=== PATIENT | male | born 1940 | race Caucasian/White ===

== ENCOUNTER 2020-03-18 06:02 | Inpatient (IN) ==
[2020-03-13 18:01] LABS: Appearance,Urine CLEAR; Bilirubin,Urine NEG (NEG); Color,Urine YELLOW; Culture Indicated,Urine NO; Glucose,Urine (UA) NEGATIVE (NEG); Ketones,Urine NEG (NEG); Leukocyte Esterase,Urine NEG /uL (NEG); Nitrate,Urine NEG (NEG); Protein,Urine NEG (NEG); Specific Gravity,Urine 1.024 (1.000-1.035); Urine Blood NEG mg/dL (<0.03); Urobilinogen,Urine NEG (NEG)
[2020-03-13 19:44] LABS: Basophils # (Auto) 0.04 K/mcL (0.00-0.30); Basophils % (Auto) 0.8 % (0.0-2.0); Eosinophils # (Auto) 0.18 K/mcL (0.00-0.70); Eosinophils % (Auto) 3.5 % (0.0-7.0); Granulocytes % (Auto) 39.9 % (38.0-78.0); Hematocrit 36.6 % (40.1-51.0); Hemoglobin 12.3 g/dL (13.7-17.5); Lymphocytes % (Auto) 44.6 % (15.5-49.0); Mean Cell Volume 96.3 fL (80.0-100.0); Mean Corpuscular HGB Conc 33.6 g/dL (31.0-36.0); Mean Platelet Volume 11.7 fL (7.4-10.4); Monocytes # (Auto) 0.58 K/mcL (0.10-0.90); Monocytes % (Auto) 11.2 % (1.0-12.0); Platelet Count 151 K/mcL (140-440); Red Cell Distribution Width 12.1 % (11.5-14.5); WBC 5.2 K/mcL (4.50-11.00)
[2020-03-13 20:02] LABS: Blood Urea Nitrogen 26 mg/dl (8-23); Calcium 9.6 mg/dl (8.6-10.4); Carbon Dioxide 26 mmol/L (22-30); Chloride 101 mmol/L (96-108); Glomerular Filtration Rate 57; Glucose 87 mg/dL (70-105)
[~2020-03-18 06:02] MED LIST: ACETAMINOPHEN 500 MG TABLET PO SCH; CELECOXIB 200 MG CAPSULE PO SCH; IPRATROPIUM/ALBUTEROL 3 ML AMPUL.NEB NEB PRN; PREGABALIN 75 MG CAPSULE PO SCH; SCOPOLAMINE 1 PATCH PATCH TOPICAL PRN; ceFAZolin 2 GM in DEXTROSE 5% IN WATER 50 ML IV SCH; oxyCODONE 10 MG TAB.ER.12H PO SCH
[2020-03-18] MEDS ORDERED: GENTAMICIN SULFATE 800 MG/20 ML VIAL IR ONE (08:33)
[2020-03-18] MEDS ORDERED: ONDANSETRON 4 MG/2 ML VIAL IV ONE (09:25)
[2020-03-18] MEDS ORDERED: DEXAMETHASONE 10 MG/ML VIAL IV ONE (09:25)
[2020-03-18] MEDS ORDERED: HYDROmorphone 1 MG/ML SYRINGE IV ONE (09:25)
[2020-03-18] MEDS ORDERED: ESMOLOL 100 MG/10 ML VIAL IV ONE (09:25)
[2020-03-18] MEDS ORDERED: GLYCOPYRROLATE 0.2 MG/ML VIAL IV ONE (09:25)
[2020-03-18] MEDS ORDERED: ROPIVACAINE HCL/PF 30 ML VIAL IJ ONE (09:25)
[2020-03-18] MEDS ORDERED: LIDOCAINE HCL/PF 100 MG/5 ML SYRINGE IV ONE (09:25)
[2020-03-18] MEDS ORDERED: TRANEXAMIC ACID 1,000 MG/10 ML VIAL IV ONE (09:25)
[2020-03-18] MEDS ORDERED: PROPOFOL 200 MG/20 ML VIAL IV ONE (09:25)
[2020-03-18] MEDS ORDERED: MIDAZOLAM 2 MG/2 ML VIAL IV ONE (09:25)
[2020-03-18] MEDS ORDERED: KETAMINE 100 MG/ML ML IV ONE (09:25)
[2020-03-18] MEDS ORDERED: IPRATROPIUM/ALBUTEROL 3 ML AMPUL.NEB NEB PRN (10:35)
[2020-03-18] MEDS ORDERED: fentaNYL 100 MCG/2 ML VIAL IV PRN (10:35)
[2020-03-18] MEDS ORDERED: ONDANSETRON 4 MG/2 ML VIAL IV PRN (10:35)
[2020-03-18] MEDS ORDERED: ACETAMINOPHEN 325 MG TABLET PO PRN (10:37)
[2020-03-18] MEDS ORDERED: TRANEXAMIC ACID 1,000 MG/10 ML VIAL IV SCH (10:37)
[2020-03-18] MEDS ORDERED: BISACODYL 10 MG SUPP.RECT PR PRN (10:37)
[2020-03-18] MEDS ORDERED: POLYETHYLENE GLYCOL 3350 17 GM PACKET PO PRN (10:37)
[2020-03-18] MEDS ORDERED: BENZOCAINE/MENTHOL 1 LOZENGE PO PRN (10:37)
[2020-03-18] MEDS ORDERED: MAGNESIUM HYDROXIDE 30 ML ORAL.SUSP PO PRN (10:37)
[2020-03-18] MEDS ORDERED: HYDROmorphone 1 MG/ML SYRINGE IV PRN (10:37)
[2020-03-18] MEDS ORDERED: KETOROLAC 15 MG/ML VIAL IV PRN (10:37)
[2020-03-18] MEDS ORDERED: FLEETS ADULT ENEMA PR PRN (10:37)
--- NOTE | 2020-03-18 10:37 | Brief Operative Note ---
Date of procedure: 03/18/20 Pre-op diagnosis: Right shoulder rca Post-op diagnosis: same Procedure: Right reverse tsa and bicep tenodesis Grafts/Implants: Yes Anesthesia: GETA Complications: none Surgeon: Roberto Nolasco Cake Tester: Richard Jaffe Estimated blood loss (cc): 120 Specimens Removed/Pathology: none sent Condition: stable Disposition: PACU
[2020-03-18] MEDS ORDERED: LACTATED RINGERS 1,000 ML IV SCH (10:45)
--- NOTE | 2020-03-18 11:00 | Discharge Summary ---
Ortho Discharge - TSA - Patient Instructions Diet: Regular Diet Activity: activity as tolerated, weight bearing as tolerated Total Shoulder Protocol: Leave immobilizer in place except for bathing and ROM. Abduction pillow. Continue to wear sling until seen by physician. Codman Pendulum : These exercises use momentum produced by your body to move your shoulder joint. Bend your knees and shift your weight to your front leg, then back, allowing your arm to swing in the same directions. Using the same technique, alternately shift your weight between your right and left legs, allowing your arm to swing from side to side. These exercises are also performed in counterclockwise and clockwise circular motions. Typically these exercises are performed several times per day, for a set number repetitions or minutes, such as 20 times in a row or 5 minutes at a time. Dressing Care: May shower in 2 days - Follow Up Plan Disposition: Home, Self-Care Prognosis: Good Rehab Potential: Good I certify that the patient requires SNF services: No Overall status at discharge: patient is progressing back to baseline - Orders For Discharge Prescriptions: Docusate Sodium [Colace] 100 mg PO BID #60 cap Transmission Status: Pending to [facility][id number] oxyCODONE/APAP [Percocet 5-325 mg] 1 - 2 tab PO Q4HP PRN #75 tab PRN Reason: Pain Level 3-6 Prescription Printed
--- NOTE | 2020-03-18 11:11 | Operative Note ---
DATE OF OPERATION: 03/18/2020 PREOPERATIVE DIAGNOSES: Right shoulder rotator cuff arthropathy with severe degenerative arthritis. POSTOPERATIVE DIAGNOSES: Right shoulder rotator cuff arthropathy with severe degenerative arthritis. PROCEDURE: Right reverse total shoulder. SURGEON: Roberto Nolasco M.D. TRANSIT SURVEY WORKER: Richard Jaffe PA-C. The PA's assistance was required for the safe and efficient completion of the entire case. This provider's expertise and technical skill were required throughout the case. The PA assisted with preoperative coordination, intraoperative retraction, wound closure, dressing and splint application, as well as postoperative documentation and care coordination. ANESTHESIA: General LMA anesthesia. COMPLICATIONS: None. ESTIMATED BLOOD LOSS: About 120 mL. INDICATIONS FOR SURGERY: The patient had prior rotator cuff repair which has failed. He has had prior therapy. He has had anti-inflammatories, Tylenol, and years of pain. This has gone on to get to the point where he cannot raise his hand over his head, cannot reach for things, and activities of daily living are severely handicapped where he cannot reach for things at eye level. It awakens him at night. The pain is rated 8/10 and has failed all conservative care. DESCRIPTION OF PROCEDURE: The patient was brought to the operating room and put to sleep with general LMA anesthesia. Once asleep, the patient had the right arm sterilely prepped and draped in the usual sterile fashion. The timeout performed confirmed the operative site by initials, consent form, and x-rays. A deltopectoral approach was performed through the [place], confirming that he did receive tranexamic acid and preoperative antibiotics. We exposed the joint through the deltopectoral interval. We released the subscap, identified the remnants of the biceps tendon which was then repaired to the pec major with #2 FiberWire. After the biceps had been repaired, we subluxed the humeral head anteriorly, releasing the inferior capsule, protecting the axillary nerve and released the spurs inferiorly. Once this was done, we made the neck cut just below the articular cartilage at 20 degrees of retroversion. Once this was done, we were able to then sublux the head posteriorly. We released the labrum and remnants of the biceps with a gator. We placed a central screw hole and reamed up to the size of 40. Once the glenoid had been reamed, we then removed any spurs and placed a screw hole for the metaglene, measuring 36 mm centrally. It gave excellent support and fixation, and the metaglene sat very flush with good bleeding bone. At this point, we then placed peripheral screws measuring 36 mm, 32 mm and 28 mm. These all locked into place. We placed a 40 mm glenosphere with 2 mm of offset, 2 mm of the eccentricity. We irrigated thoroughly and we then prepared the humeral head, reaming up to the size 12. We trialed the size 12 stem with a standard poly. This seemed to fit very nicely. We irrigated thoroughly and cemented into place the size 12 stem on the distal third of the stem for immediate fixation given the softness of the bone. Proximally we placed a standard-thickness poly. This was reduced. This seemed to give the patient excellent stability and full range of motion. The patient tolerated this well without complication. RBH:claudette Job ID: [id number] Doc ID: [id number] Roberto Nolasco MD
[2020-03-18] MEDS: LACTATED RINGERS 1,000 ML IV SCH ×2 (12:07→19:06)
[2020-03-18] MEDS: 0.9 % SODIUM CHLORIDE 10 ML SYRINGE IV SCH ×2 (12:44→20:12)
--- NOTE | 2020-03-18 13:09 | XRay Report ---
CLINICAL INFORMATION: Post-OP Total Shoulder COMPARISON: None. FINDINGS: Total shoulder prostheses is anatomically aligned. Mild acromioclavicular degeneration noted. No osseous abnormality. Soft tissue swelling seen as expected. IMPRESSION: Total shoulder prosthesis anatomically aligned Interpreted and Authenticated by: Ruben Whaley 03/18/20
[2020-03-18] MEDS: ONDANSETRON 4 MG/2 ML VIAL IV PRN ×2 (14:25→19:07)
[2020-03-18] MEDS: CARVEDILOL 3.125 MG TABLET PO SCH ×2 (15:13→20:12)
[2020-03-18] MEDS ORDERED: FINASTERIDE 5 MG TABLET PO ONE (16:29)
[2020-03-18] MEDS: ceFAZolin 1 GM VIAL IV SCH (16:44)
[2020-03-18] MEDS: MELATONIN 3 MG TABLET PO SCH (20:10)
[2020-03-18] MEDS: ATORVASTATIN 40 MG TABLET PO SCH (20:10)
[2020-03-18] MEDS: DOCUSATE SODIUM 100 MG CAPSULE PO SCH (20:10)
[2020-03-18] MEDS: SENNOSIDES 1 TABLET PO SCH (20:11)
[2020-03-18] MEDS: TERAZOSIN 1 MG CAPSULE PO SCH (20:11)
[2020-03-18] MEDS ORDERED: TEMAZEPAM 15 MG CAPSULE PO PRN (21:00)
[2020-03-19] MEDS: ceFAZolin 1 GM VIAL IV SCH (00:27)
[2020-03-19] MEDS: ONDANSETRON 4 MG/2 ML VIAL IV PRN ×3 (01:28→17:09)
[2020-03-19] MEDS: LACTATED RINGERS 1,000 ML IV SCH (05:20)
[2020-03-19] MEDS: 0.9 % SODIUM CHLORIDE 10 ML SYRINGE IV SCH ×4 (05:20→21:54)
[2020-03-19] MEDS: oxyCODONE/APAP 5/325MG TABLET PO PRN ×4 (06:57→20:17)
--- NOTE | 2020-03-19 07:26 | Orthopedic Progress Note ---
Subjective Patient information: Note initiated : 03/19/20 at 7:24 am Service Date, if different from initiated Date: [] Patient: Catalino Calhoun 79 y/o M admitted on 03/18/20 for Right Reverse Total Shoulder Arthroplasty with. Chief Complaint: [Pt is stable this morning on post operative day 1 without any significant concerns or complaints. Patients vital signs have remained stable except for very low pulse 30's-50's and some urinary retention. Patients dressing is dry and is grossly intact from a neurovascular and motor standpoint. Patients 10 point ROS is otherwise negative. ] Objective Vital signs: Vital Signs Temp Pulse Resp BP Pulse Ox 03/19/20 06:38 97.8 F 35 L 14 143/52 95 03/19/20 03:01 98.0 F 52 L 18 136/57 94 03/18/20 23:16 97.8 F 65 20 129/71 98 03/18/20 19:04 97.4 F 69 22 150/83 92 03/18/20 16:00 96.2 F L 38 L 18 176/86 97 03/18/20 13:55 34 L 18 174/72 97 03/18/20 13:25 52 L 18 152/91 96 03/18/20 12:55 58 L 18 166/83 97 03/18/20 12:39 59 L 160/85 96 03/18/20 12:24 60 173/88 95 03/18/20 12:09 63 170/87 95 03/18/20 11:55 66 16 180/90 95 03/18/20 11:46 97.4 F 66 12 159/84 97 03/18/20 11:41 67 12 168/80 97 03/18/20 11:26 71 14 162/81 100 03/18/20 11:11 59 L 11 L 136/63 100 03/18/20 11:06 77 14 159/85 99 03/18/20 11:01 70 14 143/77 98 03/18/20 10:56 96.8 F L 68 14 150/73 94 Intake and Output 03/18/20 03/19/20 03/19/20 21:59 05:59 13:59 Intake Total 698 1050 Output Total 225 700 Balance 473 350 Intake: IV 698 1000 Lactated Ringers 1,000 ml @ 672 875 0894 mls/hr IV .Q10H [facility]ERRA Rx#: [id number] Oral 50 Output: Void Amount 225 700 Other: Urine Appearance Clear Urine Color Bright Yellow Bright Yellow Urine Odor Normal Normal # Voids 1 1 Weight 177 lb Intake & Output: Intake & Output 03/18/20 03/19/20 03/19/20 21:59 05:59 13:59 Intake Total 698 1050 Output Total 225 700 Balance 473 350 Weight 177 lb Intake: IV 698 1000 Lactated Ringers 1,000 ml @ 751 541 7010 mls/hr IV .Q10H CIERRA Rx#: [id number] Oral 50 Output: Void Amount 225 700 Other: Urine Appearance Clear Urine Color Bright Yellow Bright Yellow Urine Odor Normal Normal # Voids 1 1 Incision: Yes healing Incision clean and dry: Yes Dressing: Yes clean Neurological exam IM: Yes motor sensory intact, Yes neurovascular intact Extremities exam IM: Yes Foot pink and warm, Yes neurovascular intact - Labs CBC & BMP: 03/13/20 16:29 03/13/20 16:29 Labs: 03/13/20 16:29 Hgb 12.3 L Hct 36.6 L Assessment and Plan (1) History of reverse total replacement of right shoulder joint The patient has been educated regarding dressing care, Physical Therapy recommendations, home exercises, restrictions, and follow up appointments. The patient has had all necessary DME prescribed. The patient has remained relatively stable during their hospital course. Leave Dermabond patch intact until followup. Dr rodgers has consulted Hospitalist regarding urinary retention and bradycardia. Status: Acute
[2020-03-19] MEDS: OMEPRAZOLE 20 MG CAPSULE PO SCH (07:29)
--- NOTE | 2020-03-19 08:23 | XRay Report ---
CLINICAL INFORMATION: short of breath at time COMPARISON: 08/21/2016 FINDINGS: Heart size, mediastinum and pulmonary vessels are normal. There is minor bibasilar atelectasis. No infiltrates. Small bilateral pleural effusions noted. 12 mm nodule in the left lateral base is likely a nipple shadow. IMPRESSION: Moderate bibasilar atelectasis and small effusions. 12 mm nodule in the left lateral base left lateral base is likely a nipple shadow. Consider repeat chest x-ray with nipple markers in place Interpreted and Authenticated by: Ruben Whaley 03/19/20
--- NOTE | 2020-03-19 08:23 | Internal Medicine Consult Note ---
Medical - CN: [facility] - Data of Consult Consult date: 03/19/20 Requesting physician: Roberto Nolasco Primary Care Provider: Everardo Mares M.D., F.A.A.F.P. - Consult Narrative Reason for consult: Postoperative bradycardia History of present illness: Mr. Calhoun is a 79 year old M with a known history of HTN/LBP/sinus bradycardia/PVCs/chronic urinary tension who underwent right shoulder arthroplasty by Dr. Jose. Postoperatively patient was doing fine until this morning he was found with heart rate in mid 30s and lightheaded. Subsequently hospitalist service was consulted for evaluation. Reviewing patient's past medical history , he follows up with escrow processor Dr. Rodrigo Miller and Dr. Khoa St at [place]. Patient has been initially on metoprolol but was later transitioned to Coreg 3.125 twice a day. However patient noted dramatic improvement in symptoms and start increasing the dose himself to 3 times a day followed by 2 tabs 3 times a day after conferring with escrow processor. He normally has been maintaining a heart rate around 40s to 60s and blood pressures around 100. During the postoperative phase patient complains of lack of energy and feeling lightheaded. He was found with heart rate is mid 30s. Subsequently hospitalist service was consulted. Coreg morning dose was held. Patient was started on telemetry monitoring. At the time evaluation patient is alert and respond to commands. He denies chest pain, diaphoresis or dizziness but endorses to lack of energy. He endors es to urinary tension for the last 20 years and has been following up with urologist. He denies slow stream but does not get frequent urge and under tension. He makes it a point to urinate twice before going to bed to prevent retention. Review of systems A 10 point review system was performed and is negative except for ones cussed above CC: Roberto Nolasco Medical - CN: [facility] Medical history: Joint pain (Chronic ~1979) Hyperlipidemia (Chronic ~1979) Heart trouble (Chronic) Arthritis (Chronic) Acid reflux (Chronic) Laceration (Chronic) Encounter for removal of sutures (Chronic) LBBB (left bundle branch block) (Chronic) Palpitations (Chronic) Surgical history: History of colonoscopy (Chronic ~2014) History of right hip replacement (Chronic ~2018) Bilateral cataract surgery Bilateral rotator cuff surgery Tonsillectomy Pertinent family history: Family History Mother Arthritis Father High blood pressure Stroke Social history: Retired 2 daughters and lives with spouse Quit smoking 19 82 Medical - CN: Meds Home Medications Medication Instructions Recorded Confirmed Type Atorvastatin [Lipitor] 40 mg PO HS 06/17/15 03/13/20 History Acetaminophen [Tylenol] 1,000 mg PO BID 03/13/20 03/13/20 History Aspirin 81 mg PO DAILY 03/13/20 03/18/20 History Melatonin/Pyridoxine [Melatonin 5 10 mg PO HS 03/13/20 03/13/20 History mg Tablet] Multivit,Ther Iron,Ca,FA & Min 1 tab PO DAILY 03/13/20 03/13/20 History [Multivitamin W/Minerals] Prasterone (Dhea) [Dhea] 50 mg PO DAILY 03/13/20 03/13/20 History Saw [place] Fruit/Zinc Picoli 900 mg PO DAILY 03/13/20 03/13/20 History [Saw [place] 450 mg Capsule] Terazosin [Hytrin] 6 mg PO HS 03/13/20 03/18/20 History carvedilol 3.125 mg tablet 3.125 mg PO TID tab 03/13/20 03/18/20 History finasteride 5 mg tablet 5 mg PO DAILY tab 03/13/20 03/13/20 History omeprazole 40 mg capsule,delayed 40 mg PO ACB 03/13/20 03/18/20 History release Docusate Sodium [Colace] 100 mg PO BID #60 cap 03/18/20 Rx oxyCODONE/APAP [Percocet 5-325 mg] 1 - 2 tab PO Q4HP PRN #75 tab 03/18/20 Rx Allergies Allergy/AdvReac Type Severity Reaction Status Date / Time meperidine Allergy Severe Difficulty Verified 03/13/20 15:42 Breathing Medical - CN: Exam - Constitutional Vitals: Temp Pulse Resp BP Pulse Ox 97.8 F 38 L 18 143/52 95 03/19/20 06:38 03/19/20 07:00 03/19/20 08:00 03/19/20 06:38 03/19/20 08:00 General appearance: no acute distress Exam: Alert oriented head normocephalic oral cavity dry No ear nose discharge Neck no lymphadenopathy S1-S2 bradycardia frequent PVCs \Nonlabored breathing Right upper extremity in sling/dressing Lower extremity no sinus clubbing no joint swelling Abdomen soft nontender nondistended Skin no suspicious lesion Psych alert cooperative Neuro nonfocal Medical - CN: Result - Labs CBC & Chem 7: 03/19/20 08:18 03/19/20 08:18 Medical - CN: A/P (1) Bradycardia following surgery Status: Acute Assessment and plan: * Right shoulder arthroplasty managed by Dr. Jose orthopedics * Postoperative bradycardia - postop day 1 . Prior history of bradycardia but asymptomatic and remains around 50 normally. Recommend holding beta-abby for 24 hours. If persistent bradycardia will consult with cardiology for possible pacemaker placement. Continue telemetry monitoring * Hyperlipidemia continue statin * CAD on aspirin statin , Coreg held * GERD on PPI * History of hypertension-stable * Chronic urinary retension- Follows up with urologist outpatient * BPH on terazosin/finasteride * Degenerative joint disease on home dose oxycodone * Full code Plan * Hold Coreg for 24 hours * Cardiac monitoring * Postoperative rehab * Frequent voiding trials * Other pre-existing medical condition management home meds * nutrition support
[2020-03-19 08:53] LABS: Hematocrit 35.3 % (40.1-51.0); Hemoglobin 12.2 g/dL (13.7-17.5); Mean Cell Volume 93.9 fL (80.0-100.0); Mean Corpuscular HGB Conc 34.6 g/dL (31.0-36.0); Mean Platelet Volume 11.4 fL (7.4-10.4); Platelet Count 141 K/mcL (140-440); RBC 3.76 M/mcL (4.63-6.08); Red Cell Distribution Width 11.9 % (11.5-14.5); WBC 8.4 K/mcL (4.50-11.00)
[2020-03-19] MEDS: DOCUSATE SODIUM 100 MG CAPSULE PO SCH ×2 (08:53→19:47)
[2020-03-19] MEDS: FINASTERIDE 5 MG TABLET PO SCH (08:53)
[2020-03-19] MEDS: MULTIVIT,THER IRON,CA,FA & MIN 1 TABLET PO SCH (08:53)
[2020-03-19] MEDS: ASPIRIN 81 MG TAB.CHEW PO SCH (08:53)
[2020-03-19] MEDS: Prasterone (Dhea) [Dhea] 50 MG Capsule PO SCH (08:54)
[2020-03-19] MEDS: ZINC PICOLI PO SCH (08:54)
[2020-03-19] MEDS: SAW PALMETTO FRUIT PO SCH (08:54)
[2020-03-19] MEDS: CARVEDILOL 3.125 MG TABLET PO SCH ×3 (08:57→19:47)
[2020-03-19 09:07] LABS: ALT/SGPT 13 U/l (0-40); AST/SGOT 29 U/l (0-37); Albumin 3.8 gm/dL (3.2-5.2); Albumin/Globulin Ratio 1.6 (1.0-2.3); Alkaline Phosphatase 63 U/L (39-117); Bilirubin,Direct < 0.2 mg/dL (0.0-0.3); Bilirubin,Total 0.4 mg/dL (0.0-1.0); Calcium 9.1 mg/dl (8.6-10.4); Carbon Dioxide 23 mmol/L (22-30); Chloride 101 mmol/L (96-108); Globulin 2.4 gm/dL (2.2-3.7); Glomerular Filtration Rate 71; Glucose 126 mg/dL (70-105); Lactate Dehydrogenase 163 U/L (94-250); Phosphorous 3.5 mg/dL (2.7-4.5); Triglycerides 112 mg/dl (<150); Uric Acid 4.5 mg/dL (2.5-8.0)
[2020-03-19 09:14] LABS: Blood Urea Nitrogen 19 mg/dl (8-23)
[2020-03-19 09:21] LABS: Lymphocytes % 19 % (15-49); Monocytes % (Manual) 10 % (1-12); Platelet Estimate NORMAL (NORMAL); RBC Morphology NORMAL (NORMAL); Segmented Neutrophils % 71 % (38-78)
[2020-03-19] MEDS ORDERED: FINASTERIDE 5 MG TABLET PO ONE (16:29)
--- NOTE | 2020-03-19 18:45 | Orthopedic Progress Note ---
Subjective Patient information: Note initiated : 03/19/20 at 6:43 pm Service Date, if different from initiated Date: [] Patient: Catalino Calhoun 79 y/o M admitted on 03/18/20 for Right Reverse Total Shoulder Arthroplasty with. Chief Complaint: [nausea and vomiting but minimal pain in the shoulder] Objective Vital signs: Vital Signs Temp Pulse Resp BP Pulse Ox 03/19/20 16:00 97.5 F 41 L 14 156/71 93 03/19/20 12:00 97.9 F 50 L 14 133/70 92 03/19/20 11:00 41 L 91 03/19/20 08:00 97.8 F 35 L 14 143/53 95 03/19/20 07:00 38 L 03/19/20 06:38 97.8 F 35 L 14 143/52 95 03/19/20 03:01 98.0 F 52 L 18 136/57 94 03/18/20 23:16 97.8 F 65 20 129/71 98 03/18/20 19:04 97.4 F 69 22 150/83 92 Intake and Output 03/19/20 03/19/20 03/19/20 05:59 13:59 21:59 Intake Total 1050 980 Output Total 700 625 775 Balance 350 -625 205 Intake: IV 1000 Lactated Ringers 1,000 ml @ 100 1000 mls/hr IV .Q10H [facility]ER[facility] Rx#: [id number] Oral 50 980 Output: Void Amount 700 625 775 Other: Meal Lunch Percent of Meal Consumed 50% Urine Appearance Clear Clear Clear Urine Color Bright Yellow Straw Straw Urine Odor Normal Normal Normal # Voids 1 Intake & Output: Intake & Output 03/19/20 03/19/20 03/19/20 05:59 13:59 21:59 Intake Total 1050 980 Output Total 700 625 775 Balance 350 -625 205 Intake: IV 1000 Lactated Ringers 1,000 ml @ 100 1000 mls/hr IV .Q10H [facility]ERRA Rx#: [id number] Oral 50 980 Output: Void Amount 700 625 775 Other: Meal Lunch Percent of Meal Consumed 50% Urine Appearance Clear Clear Clear Urine Color Bright Yellow Straw Straw Urine Odor Normal Normal Normal # Voids 1 Incision: Yes healing Incision clean and dry: Yes Dressing: Yes clean Weight bearing status: partial Neurological exam IM: Yes alert, Yes oriented X3, Yes neurovascular intact Extremities exam IM: Yes Foot pink and warm - Labs CBC & BMP: 03/19/20 08:18 03/19/20 08:18 Labs: 03/19/20 03/13/20 08:18 16:29 Hgb 12.2 L 12.3 L Hct 35.3 L 36.6 L
[2020-03-19] MEDS: SENNOSIDES 1 TABLET PO SCH (19:46)
[2020-03-19] MEDS: MELATONIN 3 MG TABLET PO SCH (19:46)
[2020-03-19] MEDS: TERAZOSIN 1 MG CAPSULE PO SCH (19:47)
[2020-03-19] MEDS: ATORVASTATIN 40 MG TABLET PO SCH (19:47)
[2020-03-20] MEDS: oxyCODONE/APAP 5/325MG TABLET PO PRN (03:15)
[2020-03-20] MEDS: 0.9 % SODIUM CHLORIDE 10 ML SYRINGE IV SCH (05:02)
[2020-03-20 06:58] LABS: Hematocrit 31.7 % (40.1-51.0); Hemoglobin 10.7 g/dL (13.7-17.5); Mean Cell Volume 95.5 fL (80.0-100.0); Mean Corpuscular HGB Conc 33.8 g/dL (31.0-36.0); Mean Platelet Volume 11.5 fL (7.4-10.4); Platelet Count 122 K/mcL (140-440); RBC 3.32 M/mcL (4.63-6.08); WBC 6.8 K/mcL (4.50-11.00)
[2020-03-20 07:20] LABS: ALT/SGPT 10 U/l (0-40); AST/SGOT 27 U/l (0-37); Albumin 3.2 gm/dL (3.2-5.2); Albumin/Globulin Ratio 1.5 (1.0-2.3); Alkaline Phosphatase 53 U/L (39-117); Bilirubin,Direct < 0.2 mg/dL (0.0-0.3); Bilirubin,Total 0.3 mg/dL (0.0-1.0); Blood Urea Nitrogen 17 mg/dl (8-23); Calcium 8.8 mg/dl (8.6-10.4); Carbon Dioxide 25 mmol/L (22-30); Chloride 104 mmol/L (96-108); Globulin 2.2 gm/dL (2.2-3.7); Glomerular Filtration Rate 64; Glucose 110 mg/dL (70-105); Lactate Dehydrogenase 138 U/L (94-250); Phosphorous 3.1 mg/dL (2.7-4.5); Triglycerides 97 mg/dl (<150); Uric Acid 4.1 mg/dL (2.5-8.0)
[2020-03-20] MEDS: ONDANSETRON 4 MG/2 ML VIAL IV PRN (07:46)
[2020-03-20 08:52] LABS: Band Neutrophils % 1 % (0-10); Eosinophils % (Manual) 1 % (0-7); Lymphocytes % 20 % (15-49); Monocytes % (Manual) 6 % (1-12); Platelet Estimate DECREASED (NORMAL); RBC Morphology NORMAL (NORMAL); Segmented Neutrophils % 72 % (38-78)
[2020-03-20] MEDS: DOCUSATE SODIUM 100 MG CAPSULE PO SCH (09:13)
[2020-03-20] MEDS: MULTIVIT,THER IRON,CA,FA & MIN 1 TABLET PO SCH (09:13)
[2020-03-20] MEDS: CARVEDILOL 3.125 MG TABLET PO SCH (09:13)
[2020-03-20] MEDS: FINASTERIDE 5 MG TABLET PO SCH (09:13)
[2020-03-20] MEDS: ASPIRIN 81 MG TAB.CHEW PO SCH (09:13)
[2020-03-20] MEDS: ZINC PICOLI PO SCH (09:14)
[2020-03-20] MEDS: OMEPRAZOLE 20 MG CAPSULE PO SCH (09:14)
[2020-03-20] MEDS: SAW PALMETTO FRUIT PO SCH (09:14)
[2020-03-20] MEDS: Prasterone (Dhea) [Dhea] 50 MG Capsule PO SCH (09:14)
--- NOTE | 2020-03-20 09:38 | Internal Med Progress Note ---
Medical - PN: Subj Patient information: Note initiated : 03/20/20 at 9:36 am Service Date, if different from initiated Date: [] Patient: Catalino Calhoun a 79 y/o M admitted on 03/18/20 for Right Reverse Total Shoulder Arthroplasty with. Chief Complaint: [] Interval history: Mr. Calhoun is a 79 year old M with a known history of HTN/LBP/sinus bradycardia/PVCs/chronic urinary tension who underwent right shoulder arthropla sty by Dr. Jose. Postoperatively patient was doing fine until this morning he was found with heart rate in mid 30s and lightheaded. Subsequently hospitalist service was consulted for evaluation. Reviewing patient's past medical history , he follows up with radar operator Dr. Rodrigo Miller and Dr. Khoa St at [place]. Patient has been initially on metoprolol but was later transitioned to Coreg 3.125 twice a day. However patient noted dramatic improvement in symptoms and start increasing the dose himself to 3 times a day followed by 2 tabs 3 times a day after conferring with radar operator. He normally has been maintaining a heart rate around 40s to 60s and blood pressures around 100. During the postoperative phase patient complains of lack of energy and feeling lightheaded. He was found with heart rate is mid 30s. Subsequently hospitalist service was consulted. Coreg morning dose was held. Patient was started on telemetry monitoring. At the time evaluation patient is alert and respond to commands. He denies chest pain, diaphoresis or dizziness but endorses to lack of energy. He endorses to urinary tension for the last 20 years and has been following up with urologist. He denies slow stream but does not get frequent urge and under tension. He makes it a point to urinate twice before going to bed to prevent retention. 03/20. Patient doing well. Postoperative pain control. However episode of nausea this morning. Tolerating diet. Tolerating physical therapy. Heart rate much improved now in mid 50s to 60s. Restart Coreg 3.125 twice daily. Ongoing postop care per orthopedics. Denies diaphoresis/lightheadedness dizziness. Orthostatic stable. - Constitutional Vitals: Vital Signs Temp Pulse Resp BP Pulse Ox 98.9 F 59 L 16 102/55 92 03/20/20 07:46 03/20/20 09:03 03/20/20 07:46 03/20/20 09:03 03/20/20 09:03 Period Temp Pulse Resp BP Sys/Scruggs Pulse Ox Last 24 Hr 97.5 F-98.9 F 38-64 14-18 102-156/55-71 87-93 Intake and Output 03/19/20 03/20/20 03/20/20 21:59 05:59 13:59 Intake Total 980 150 Output Total 1425 301 200 Balance -445 -151 -200 Weight 178 lb Intake & Output: Intake & Output 03/19/20 03/20/20 03/20/20 21:59 05:59 13:59 Intake Total 980 150 Output Total 1425 301 200 Balance -445 -151 -200 Weight 178 lb Intake: Oral 980 150 Output: Urine Catheter Amount 350 300 Void Amount 1075 1 200 Other: Meal Lunch Nourishment/Supplement Percent of Meal Consumed 50% 100% Feeding Ability Independent Urine Appearance Clear Urine Color Bright Yellow Urine Odor Normal # Voids 1 General appearance: no acute distress Exam: Alert oriented Nonlabored breathing Minimal anxiety nondistended abdomen No significant postop swelling right shoulder Medical - PN: Obj Da - Labs CBC & Chem 7: 03/20/20 05:50 03/20/20 05:50 Labs: Abnormal Lab Results 03/20/20 03/20/20 03/19/20 05:50 05:50 08:18 RBC 3.32 L Hgb 10.7 L Hct 31.7 L Plt Count 122 L MPV 11.5 H Platelet Estimate Decreased A Glucose 110 H 126 H Total Protein 5.4 L 03/19/20 08:18 RBC 3.76 L Hgb 12.2 L Hct 35.3 L Plt Count MPV 11.4 H Platelet Estimate Glucose Total Protein Meds: Medications Acetaminophen (Tylenol) 650 mg PO Q6HP PRN PRN Reason: PAIN/FEVER > 101 Aspirin (Aspirin) 81 mg PO DAILY [facility] Last Admin: 03/20/20 09:13 Dose: 81 mg Documented by: Atorvastatin Calcium (Lipitor) 40 mg PO HS [facility] Last Admin: 03/19/20 19:47 Dose: 40 mg Documented by: Bisacodyl (Dulcolax) 10 mg SC Q2-3DAYS PRN PRN Reason: Constipation Carvedilol (Coreg) 3.125 mg PO TID [facility] Last Admin: 03/20/20 09:13 Dose: 3.125 mg Documented by: Docusate Sodium (Colace) 100 mg PO BID [facility] Last Admin: 03/20/20 09:13 Dose: 100 mg Documented by: Finasteride (Proscar) 5 mg PO DAILY [facility] Last Admin: 03/20/20 09:13 Dose: 5 mg Documented by: Hydromorphone HCl (Dilaudid) 0 mg IV Q2HP PRN; Protocol PRN Reason: Per Pain Protocol Iron Carb/Multivit/[place]/Folic Acid (Multivitamin W/Minerals) 1 tab PO DAILY [facility] Last Admin: 03/20/20 09:13 Dose: 1 tab Documented by: Ketorolac Tromethamine (Toradol) 15 mg IV Q6HP PRN PRN Reason: Pain Stop: 03/20/20 10:37 Magnesium Hydroxide (Milk Of Magnesia) 30 ml PO BIDP PRN PRN Reason: Constipation Melatonin (Melatonin 3mg Tablet) 9 mg PO [facility] Last Admin: 03/19/20 19:46 Dose: 9 mg Documented by: Omeprazole (Prilosec) 40 mg PO ACB [facility] Last Admin: 03/20/20 09:14 Dose: 40 mg Documented by: Ondansetron HCl (Zofran) 4 mg IV Q4HP PRN PRN Reason: Nausea And Vomiting Last Admin: 03/20/20 07:46 Dose: 4 mg Documented by: Oxycodone/Acetaminophen (Percocet 5-325 Mg) 0 tab PO Q4HP PRN PRN Reason: PAIN LEVEL 3-6 Last Admin: 03/20/20 03:15 Dose: 1 tab Documented by: Prasterone (Dhea) [ (Dhea] 50 Mg Capsule) 1 dose PO DAILY [facility] Last Admin: 03/20/20 09:14 Dose: Not Given Documented by: Saw [place] Fruit/Zinc Picoli [Saw [place] 450 Mg] Tablet 1 dose PO DAILY [facility] Last Admin: 03/20/20 09:14 Dose: Not Given Documented by: Polyethylene Glycol (Miralax) 17 gm PO DAILYP PRN PRN Reason: Constipation Senna (Senokot) 2 tab PO [facility] Last Admin: 03/19/20 19:46 Dose: 2 tab Documented by: Sodium Biphosphate/Sodium Phosphate (Fleets Adult) 1 dose SC Q3-4DAYS PRN PRN Reason: Constipation Sodium Chloride (Saline Flush) 10 ml IV Q8 [facility] Last Admin: 03/20/20 05:02 Dose: 10 ml Documented by: Temazepam (Restoril) 15 mg PO HSP PRN PRN Reason: Insomnia Terazosin HCl (Hytrin) 6 mg PO HS [facility] Last Admin: 03/19/20 19:47 Dose: 6 mg Documented by: Throat Lozenges (Cepacol) 1 lozenge PO PRN PRN PRN Reason: Sore Throat Medical - PN: A/P - Time Spent With Patient Total time spent is greater than 50% in coordination of care (as documented) at patient's floor/unit and/or counseling patient: 25 - 35 minutes (1) Bradycardia following surgery Status: Acute Assessment and plan: * Right shoulder arthroplasty postop day 2. Managed by Dr. Jose orthopedics * Postoperative bradycardia -resolved following holding beta-abby for 24 hours. Restart at 3.125 Coreg twice daily * Hyperlipidemia continue home dose statin * CAD on aspirin statin , restart Coreg * GERD on PPI * History of hypertension-Stable * Chronic urinary retension-agrees to self cath. Follows up with urologist outpatient. Schedule outpatient follow-up * BPH on terazosin/finasteride * Degenerative joint disease on home dose oxycodone * Full code Plan * Restart Coreg 3.125 twice daily * Continue therapies * Straight cath as indicated * Discharge planning Current Visit: Yes
== END 2020-03-20 13:27 | disposition home or self-care (01) | DRG 483 ==
LOC: MEDSUR 06:02
PROVIDERS: ADMIT Orthopaedic Surgery; ATTEND Orthopaedic Surgery